=== PATIENT | female | born 1990 | race Caucasian/White ===

== ENCOUNTER → 2017-12-08 | Outpatient (CLI) | payer BC ==
[~2017-12-08] MED LIST: AMPH10TA2 PO; BUPR-79 PO
--- NOTE | 2017-12-08 16:52 | DIAGNOSTIC IMAGING REPORT ---
LEFT ANKLE/HINDFOOT MRI, LEFT FOREFOOT MRI HISTORY: Left foot ARCH PAIN TECHNIQUE: Multiplanar multisequence MRI of the left ankle/hindfoot and forefoot were performed without the use of intravenous contrast. COMPARISON STUDY: Left foot 11/08/2017. FINDINGS: Left ankle/hindfoot: No fracture or dislocation. Normal marrow signal intensity seen throughout the visualized osseous structures. The medial and lateral stabilizing ligaments are intact. Soft tissues are unremarkable. There is mild edema surrounding the intact proximal plantar fascia at the attachment with the calcaneus. This is consistent with a mild plantar fasciitis.. The sinus tarsi is unremarkable. No significant joint effusion. The flexor, extensor, peroneal, and Achilles tendons are normal in course, caliber, and signal intensity. Left forefoot: No fracture or dislocation. Normal marrow signal intensity seen throughout the visualized osseous structures. Soft tissues are unremarkable. The flexor and extensor tendons are intact. IMPRESSION: Mild plantar fasciitis. Electronically signed by: Sid Blake M.D. 12/08/2017 4:51 PM Dictated Date/Time: 12/08/2017 4:40 PM
== END | disposition home or self-care (01) ==
LOC: C.MRIBC 14:51
PROVIDERS: ATTEND Family Medicine
DX: M72.2 Plantar fascial fibromatosis (principal); M79.672 Pain in left foot